=== PATIENT | male | born 1975 | race Caucasian/White ===

== ENCOUNTER 2022-07-18 17:00 | Inpatient (IN) | payer BC ==
[~2022-07-18] VITALS: Ht 175.3 cm; Wt 102.1 kg
[2022-07-18 17:49] VITALS: BP 127/86
[2022-07-18 17:51] VITALS: BP 127/86
[2022-07-18 17:59] LABS: BASOPHILS % 0.3 % (0.0-1.0); EOSINOPHILS # (AUTO) 0.2 (0.0-0.4); EOSINOPHILS % 1.4 % (0.0-6.0); HEMATOCRIT 39.2 % (38.2-49.6); HEMOGLOBIN 12.5 g/dL (14.0-18.0); LYMPHOCYTES # (AUTO) 2.6 (1.0-3.2); LYMPHOCYTES % 18.3 % (18.0-39.1); MEAN CORPUSCULAR HEMOGLOBIN 28.3 pg (28-32); MEAN CORPUSCULAR HGB CONC 31.9 g/dL (31-35); MEAN CORPUSCULAR VOLUME 88.7 fL (81-99); MONOCYTES # (AUTO) 1.3 (0.2-0.8); MONOCYTES % 8.9 % (4.4-11.3); NEUTROPHILS # (AUTO) 9.8 (2.1-6.9); PLATELET COUNT 299 x10e3/uL (140-360); RED BLOOD COUNT 4.42 x10e6/uL (4.3-5.7)
[2022-07-18 18:04] LABS: ALBUMIN 3.4 g/dL (3.5-5.0); ALBUMIN/GLOBULIN RATIO 0.9 (0.8-2.0); ANION GAP 12.9 mmol/L (8-16); CREATININE, SERUM 0.87 mg/dL (0.72-1.25); POTASSIUM 3.9 mmol/L (3.5-5.1)
[2022-07-18] MEDS ORDERED: Morphine 2mg Syringe 2 MG/ML SYR IV PRN (18:15)
[2022-07-18] MEDS ORDERED: TRAMADOL HCL 50 MG TAB PO PRN (18:15)
[2022-07-18] MEDS ORDERED: COLCHICINE0.6 M1 PO (18:36)
[2022-07-18] MEDS ORDERED: VALSARTAN-HCTZ1 EAC3 PO (18:36)
[2022-07-18 20:00] VITALS: BP 134/86
[2022-07-18 21:00] VITALS: BP 134/86
[2022-07-18] MEDS ORDERED: KETOROLAC TROMETHAMINE 60 MG/2 ML VIAL IM ONE (22:30)
[2022-07-19] VITALS (7 sets, daily range): BP systolic 106–138; BP diastolic 65–86
[2022-07-19] MEDS: Morphine 4mg INJECTION 4 MG/ML INJ IV PRN ×3 (00:39→20:42)
[2022-07-19 06:00] LABS: BASOPHILS % 0.3 % (0.0-1.0); EOSINOPHILS # (AUTO) 0.2 (0.0-0.4); EOSINOPHILS % 1.5 % (0.0-6.0); LYMPHOCYTES # (AUTO) 2.3 (1.0-3.2); LYMPHOCYTES % 20.6 % (18.0-39.1); MEAN CORPUSCULAR HEMOGLOBIN 28.6 pg (28-32); MEAN CORPUSCULAR HGB CONC 32.4 g/dL (31-35); MEAN CORPUSCULAR VOLUME 88.3 fL (81-99); MONOCYTES # (AUTO) 1.2 (0.2-0.8); MONOCYTES % 10.8 % (4.4-11.3); NEUTROPHILS # (AUTO) 7.5 (2.1-6.9); NEUTROPHILS % 66.4 % (38.7-80.0); PLATELET COUNT 281 x10e3/uL (140-360); RED BLOOD COUNT 4.19 x10e6/uL (4.3-5.7); RED CELL DISTRIBUTION WIDTH 13.1 % (11.7-14.4)
[2022-07-19] MEDS ORDERED: KETOROLAC TROMETHAMINE 30 MG/ML VIAL IM PRN (06:00)
[2022-07-19 06:29] LABS: ALBUMIN 3.2 g/dL (3.5-5.0); ALBUMIN/GLOBULIN RATIO 0.9 (0.8-2.0); ANION GAP 17.2 mmol/L (8-16); CALCIUM 8.9 mg/dL (8.4-10.2); CREATININE, SERUM 0.86 mg/dL (0.72-1.25); MAGNESIUM 2.3 MG/DL (1.3-2.1); POTASSIUM 4.2 mmol/L (3.5-5.1)
[2022-07-19] MEDS ORDERED: Vancomycin IV 1 GM in SODIUM CHLORIDE 0.9% 250ML 250 ML IV SCH (09:00)
[2022-07-19] MEDS ORDERED: COLCHICINE 0.6 MG TAB PO ONE (09:00)
[2022-07-19] MEDS ORDERED: Vancomycin IV 1.25 GM in SODIUM CHLORIDE 0.9% 250ML 250 ML IV SCH (09:00)
[2022-07-19] MEDS: VALSARTAN 160 MG TAB PO SCH (11:20)
[2022-07-19] MEDS: HYDROCHLOROTHIAZIDE 25 MG TAB PO SCH (11:20)
[2022-07-19] MEDS: Vancomycin IV 1.25 GM in SODIUM CHLORIDE 0.9% 250ML 250 ML IV SCH ×2 (11:35→20:33)
[2022-07-19] MEDS: KETOROLAC TROMETHAMINE 10 MG TAB PO SCH ×2 (12:56→18:00)
[2022-07-19] MEDS ORDERED: COLCHICINE 0.6 MG TAB PO SCH (17:00)
[2022-07-20] VITALS (7 sets, daily range): BP systolic 116–136; BP diastolic 69–93
[2022-07-20] MEDS: KETOROLAC TROMETHAMINE 10 MG TAB PO SCH ×3 (01:00→14:04)
[2022-07-20 06:39] LABS: BASOPHILS # (AUTO) 0.1 (0.0-0.1); BASOPHILS % 0.4 % (0.0-1.0); EOSINOPHILS # (AUTO) 0.3 (0.0-0.4); EOSINOPHILS % 2.6 % (0.0-6.0); HEMATOCRIT 37.1 % (38.2-49.6); HEMOGLOBIN 11.7 g/dL (14.0-18.0); LYMPHOCYTES # (AUTO) 2.2 (1.0-3.2); LYMPHOCYTES % 19.9 % (18.0-39.1); MEAN CORPUSCULAR HEMOGLOBIN 28.5 pg (28-32); MEAN CORPUSCULAR HGB CONC 31.5 g/dL (31-35); MEAN CORPUSCULAR VOLUME 90.3 fL (81-99); MONOCYTES % 9.3 % (4.4-11.3); NEUTROPHILS # (AUTO) 7.6 (2.1-6.9); NEUTROPHILS % 67.4 % (38.7-80.0); PLATELET COUNT 314 x10e3/uL (140-360); RED BLOOD COUNT 4.11 x10e6/uL (4.3-5.7)
[2022-07-20 07:15] LABS: FERRITIN 622.83 ng/mL (21.81-274.66)
[2022-07-20 07:26] LABS: ALBUMIN/GLOBULIN RATIO 0.9 (0.8-2.0); CREATININE, SERUM 0.87 mg/dL (0.72-1.25)
[2022-07-20 07:49] LABS: ANION GAP 16.1 mmol/L (8-16); CALCIUM 8.7 mg/dL (8.4-10.2); POTASSIUM 4.1 mmol/L (3.5-5.1)
[2022-07-20] MEDS: Morphine 4mg INJECTION 4 MG/ML INJ IV PRN (08:14)
[2022-07-20] MEDS: HYDROCHLOROTHIAZIDE 25 MG TAB PO SCH (14:04)
[2022-07-20] MEDS: Vancomycin IV 1.25 GM in SODIUM CHLORIDE 0.9% 250ML 250 ML IV SCH ×2 (14:04→21:17)
[2022-07-20] MEDS: VALSARTAN 160 MG TAB PO SCH (14:04)
[2022-07-20] MEDS ORDERED: KETOROLAC TROMETHAMINE 30 MG/ML VIAL IV PRN (16:00)
[2022-07-21] VITALS: BP 122/78
[2022-07-21 03:50] VITALS: BP 122/78
[2022-07-21 03:51] VITALS: BP 122/78
[2022-07-21 04:00] VITALS: BP 130/88
[2022-07-21 05:47] LABS: BASOPHILS # (AUTO) 0.1 (0.0-0.1); BASOPHILS % 0.6 % (0.0-1.0); EOSINOPHILS # (AUTO) 0.4 (0.0-0.4); EOSINOPHILS % 4.2 % (0.0-6.0); HEMATOCRIT 37.7 % (38.2-49.6); HEMOGLOBIN 11.8 g/dL (14.0-18.0); LYMPHOCYTES % 22.1 % (18.0-39.1); MEAN CORPUSCULAR HEMOGLOBIN 28.1 pg (28-32); MEAN CORPUSCULAR HGB CONC 31.3 g/dL (31-35); MEAN CORPUSCULAR VOLUME 89.8 fL (81-99); NEUTROPHILS # (AUTO) 5.5 (2.1-6.9); NEUTROPHILS % 61.7 % (38.7-80.0); PLATELET COUNT 350 x10e3/uL (140-360); RED CELL DISTRIBUTION WIDTH 12.6 % (11.7-14.4)
[2022-07-21 06:20] LABS: ALBUMIN/GLOBULIN RATIO 0.9 (0.8-2.0); ANION GAP 15.5 mmol/L (8-16); CALCIUM 9.2 mg/dL (8.4-10.2); CREATININE, SERUM 0.88 mg/dL (0.72-1.25); POTASSIUM 4.5 mmol/L (3.5-5.1)
[2022-07-21 08:01] VITALS: BP 122/89
[2022-07-21] MEDS: VALSARTAN 160 MG TAB PO SCH (09:30)
[2022-07-21] MEDS: HYDROCHLOROTHIAZIDE 25 MG TAB PO SCH (09:31)
[2022-07-21 12:30] VITALS: BP 131/86
[2022-07-21] MEDS ORDERED: KETOROLAC TROME10 MG PO (12:41)
[2022-07-21] MEDS ORDERED: AMOX TR-K CLV1 EAC2 PO (12:41)
[2022-07-21] MEDS ORDERED: VIBRAMYCIN100 MG PO (12:41)
[2022-07-21] MEDS ORDERED: INDOMETHACIN50 MG PO (12:41)
== END 2022-07-21 15:13 | disposition home or self-care (01) | DRG 565 ==
LOC: MED/SURG2 17:00 → INTOOBSV 17:00 → OBSVTOIN 07-20 15:59
PROVIDERS: ADMIT Internal Medicine; ATTEND Internal Medicine
DX: M25.422 Effusion, left elbow (principal); L03.114 Cellulitis of left upper limb; M10.022 Idiopathic gout, left elbow; M10.012 Idiopathic gout, left shoulder; I10 Essential (primary) hypertension; E66.9 Obesity, unspecified; Z68.33 Body mass index [BMI] 33.0-33.9, adult
CPT/HCPCS: 36415; 80053; 80202; 82607; 82728; 82746; 83540; 83735; 84466; 84550; 85025; 85651; 86140; 94799; G0378; J0692; J1885; J2270; J3370; J7050